=== PATIENT | male | born 1945 | race Caucasian/White ===

== ENCOUNTER 2018-11-14 08:35 | Emergency (ER) | payer BC, MEDICARE ==
[2018-11-14 08:48] VITALS: BP 115/79
--- NOTE | 2018-11-14 08:52 | UC ---
Lower Extremity/Ankle HPI - HPI Summary HPI Summary: Patient is 73 year old male , who present today to the urgent care with L 4th toe pain since 4 days. Pt denies recent injury to foot. He reports that he's tried warm soaks but now is noticing more redness and pain in the left fourth toe. He denies any other symptoms. Denies any fever, chills, cough chest pain or shortness of breath . Denies any abdominal pain , nausea or vomiting , diarrhea or constipation. - History of Current Complaint Chief Complaint: UCLowerExtremity Stated Complaint: RT FOOT/TOE COMP. Time Seen by Provider: 11/14/18 08:43 Hx Obtained From: Patient Pain Intensity: 4 - Allergies/Home Medications Allergies/Adverse Reactions: Allergies Allergy/AdvReac Type Severity Reaction Status Date / Time No Known Allergies Allergy Verified 11/14/18 08:41 Home Medications: Home Medications Atorvastatin* [Lipitor*] 80 mg PO DAILY 11/14/18 [History Confirmed 11/14/18] Levothyroxine TAB* [Synthroid TAB*] 150 mcg PO DAILY 11/14/18 [History Confirmed 11/14/18] Lisinopril/Hydrochlorothiazide [Lisinopril-Hctz 20-25 mg Tab] 1 each PO DAILY [History Confirmed 11/14/18] PMH/Surg Hx/FS Hx/Imm Hx - Additional Past Medical History Additional PMH: Past Medical History: hypertension Past Surgical History: Appendectomy, hernia Family History : non contributory Social History : No alcohol, non smoker, no drug use. Previously Healthy: Yes - Surgical History Surgical History: Yes Surgery Procedure, Year, and Place: appendectomy and hernia repair at 18 y.o.a. - Family History Known Family History: Positive: Cardiac Disease, Non-Contributory - Social History Alcohol Use: None Substance Use Type: None Smoking Status (MU): Never Smoked Tobacco - Immunization History Most Recent Influenza Vaccination: October 2012 Most Recent Tetanus Shot: 2009 Most Recent Pneumonia Vaccination: none Review of Systems All Other Systems Reviewed And Are Negative: Yes Constitutional: Positive: Negative Skin: Positive: Other - Redness and swelling of the left fourth toe Eyes: Positive: Negative ENT: Positive: Negative Respiratory: Positive: Negative Cardiovascular: Positive: Negative Gastrointestinal: Positive: Negative Genitourinary: Positive: Negative Motor: Positive: Negative Neurovascular: Positive: Negative Musculoskeletal: Positive: Negative Neurological: Positive: Negative Psychological: Positive: Negative Is Patient Immunocompromised?: No Physical Exam - Summary Physical Exam Summary: IVital Signs Reviewed: Yes A+Ox3, no distress Eyes: Conjunctiva Clear ENT: Hearing grossly normal neck: supple Respiratory: Positive: No respiratory distress, No accessory muscle use Cardiovascular: skin color reflect adequate perfusion Musculoskeletal Exam: REECE x 4 without difficulty Neurological: Positive: Alert, ambulatory without difficulty Psychological: Positive: Normal Response To Family Skin: There is erythema and swelling of the distal phalanx of the left fourth toe. No drainage noted. No abscess Triage Information Reviewed: Yes Vital Signs: Initial Vital Signs Temp 98.0 F 11/14/18 08:43 Pulse 75 11/14/18 08:43 Resp 20 11/14/18 08:43 BP 115/79 11/14/18 08:43 Pulse Ox 98 11/14/18 08:43 Vital Signs Reviewed: Yes Lower Extremity Course/Dx - Course Course Of Treatment: During the visit today, we discussed the findings and further plan. I will prescribe the medication to the pharmacy . Patient expressed understanding . - Differential Dx/Diagnosis Provider Diagnosis: Cellulitis of fourth toe, left Discharge ED - Sign-Out/Discharge Documenting (check all that apply): Patient Departure All imaging exams completed and their final reports reviewed: No Studies - Discharge Plan Condition: Stable Disposition: HOME Prescriptions: Cephalexin CAP* [Keflex CAP*] 500 mg PO TID 10 Days #30 cap Patient Education Materials: Cellulitis (ED) Referrals: Henry Zhu MD [Primary Care Provider] - 1 Week Additional Instructions: Please start taking the medication as prescribed to the pharmacy . Continue warm soaks Tylenol or ibuprofen as needed for pain Follow up with your primary care doctor in 1 week Return to Urgent care / ER if symptoms get worse. - Billing Disposition and Condition Condition: STABLE Disposition: Home
== END 2018-11-14 09:08 | disposition home or self-care (01) ==
LOC: UCEAST 08:35
DX: L03.032 Cellulitis of left toe (principal); I10 Essential (primary) hypertension
CPT/HCPCS: 99212; G0463

== ENCOUNTER 2021-08-13 11:03 | Observation (INO) ==
[2021-08-13 12:03] LABS: INR 1.02 (0.86-1.15)
[2021-08-13 12:19] LABS: Albumin/Globulin Ratio 1.5 (1-3); Calcium 9.2 mg/dL (8.6-10.3); Globulin 2.6 g/dL (2-4); Total Bilirubin 0.6 mg/dL (0.2-1.0); Total Protein 6.6 g/dL (6.4-8.9); eGFR CKD-EPI 53.7 (>60)
[2021-08-13 13:03] LABS: ABS Basophils 0.1 10^3/ul (0-0.2); ABS Eosinophils 0.3 10^3/ul (0-0.6); ABS Lymphocytes 1.2 10^3/ul (1.0-4.8); ABS Monocytes 0.8 10^3/ul (0-0.8); ABS Neutrophils 3.6 10^3/ul (1.5-7.7); Eosinophil % 4.9 %; Hematocrit 41 % (42-52); Hemoglobin 13.7 g/dL (14.0-18.0); Lymphocyte % 19.9 %; Mean Corpuscular HGB Conc 34 g/dL (31-36); Mean Corpuscular Hemoglobin 28 pg (27-31); Mean Corpuscular Volume 85 fL (80-94); Mean Platelet Volume 9.2 fL (7.4-10.4); Platelet Count 195 10^3/uL (150-450); Red Blood Count 4.84 10^6 /uL (4.18-5.48); Red Cell Distribution Width 15 % (10-15)
[2021-08-13 13:32] LABS: High Sensitivity Troponin 1 Hr 7 pg/mL (<20)
[2021-08-13] MEDS ORDERED: Famotidine IV 10 MG/ML 2 ml VIAL (20 mg) ONE (13:42)
[2021-08-13] MEDS ORDERED: ceFAZolin 2 GM in NS PREMIX 2 GM/100 ML BAG IVPB ONE (14:23)
[2021-08-13] MEDS ORDERED: ceFAZolin VIAL 1 GM in NS 0.9% 50 ML 50 ML IVPB ONE (14:23)
[2021-08-13] MEDS ORDERED: ceFAZolin 2 GM PREMIX 2 GM/50 ML BAG IV ONE (14:45)
[2021-08-13] MEDS ORDERED: ceFAZolin 1 GM/10 ML flush SYRINGE for pocket flush (cardiology) FLUSH ONE (14:45)
[2021-08-13] MEDS ORDERED: Perflutren Lipid Microsphere 3 ML VIAL ONE (15:08)
[2021-08-13 15:22] LABS: TSH Ultra Thyroid Stim Horm 3.4 mcIU/mL (0.34-5.60)
[2021-08-13] MEDS ORDERED: Midazolam 5 mg/5 ml VIAL 1 mg/ml 5 ml VIAL (5 mg) ONE ×2 (15:59→17:29)
[2021-08-13] MEDS ORDERED: fentaNYL 100 mcg/2 ml 50 MCG/ML VIAL ONE (16:00)
[2021-08-13] MEDS ORDERED: Lidocaine 1% MPF 5 ML VIAL ONE ×3 (16:31→17:08)
[2021-08-13] MEDS ORDERED: Remdesivir 100 mg Vial 200 MG in NS 0.9% 250 ml 210 ML IV ONE (16:51)
[2021-08-13] MEDS ORDERED: Iohexol 350 (CONTRAST) 50 ML SDV IV ONE (17:28)
[2021-08-13] MEDS: NS 0.9% 1000 ml BAG 1,000 ML IV SCH (20:13)
[2021-08-13] MEDS: ceFAZolin 1 GM ADVAN 1 GM in NS 0.9% 50 ML 50 ML IVPB SCH (21:49)
[2021-08-13 23:45] LABS: INR 1.06 (0.86-1.15)
[2021-08-14 00:43] LABS: ALT 31 U/L (7-52); Albumin 4.3 g/dL (3.2-5.2); Albumin/Globulin Ratio 1.5 (1-3); Alkaline Phosphatase 42 U/L (35-149); Anion Gap 5 mmol/L (2-11); Blood Urea Nitrogen 25 mg/dL (6-24); CO2 Carbon Dioxide 20 mmol/L (22-32); Calcium 8.4 mg/dL (8.6-10.3); Chloride 105 mmol/L (101-111); Globulin 2.8 g/dL (2-4); Glucose 176 mg/dL (70-100); Sodium 130 mmol/L (135-145); Total Protein 7.1 g/dL (6.4-8.9)
[2021-08-14] MEDS: ceFAZolin 1 GM ADVAN 1 GM in NS 0.9% 50 ML 50 ML IVPB SCH ×2 (06:17→13:32)
[2021-08-14 08:24] LABS: INR 1.06 (0.86-1.15)
[2021-08-14] MEDS ORDERED: Lisinopril/HCTZ 20/25 TAB (NF) PO SCH (09:00)
[2021-08-14 09:02] LABS: Albumin 3.9 g/dL (3.2-5.2); Albumin/Globulin Ratio 1.5 (1-3); Calcium 9.2 mg/dL (8.6-10.3); Globulin 2.6 g/dL (2-4); Potassium 4.2 mmol/L (3.5-5.0); Total Bilirubin 0.5 mg/dL (0.2-1.0); Total Protein 6.5 g/dL (6.4-8.9); eGFR CKD-EPI 55.6 (>60)
[2021-08-14] MEDS: NS 0.9% 1000 ml BAG 1,000 ML IV SCH (15:14)
[2021-08-14 15:58] VITALS: BP 121/67
[2021-08-14] MEDS ORDERED: Remdesivir 100 mg Vial 100 MG in NS 0.9% 250 ml 230 ML IV SCH (21:00)
== END 2021-08-14 17:45 | disposition home or self-care (01) ==
LOC: EDHOLD 11:03 → ED 11:03 → SUATTDRO 14:40 → EDHOLD 16:26 → MEDTELE 19:42
PROVIDERS: ADMIT Student in an Organized Health Care Education/Training Program; ATTEND Hospitalist